=== PATIENT | female | born 1990 | race Hispanic/Latino ===

== ENCOUNTER 2019-10-13 12:44 | Emergency (ER) | payer OTHER, SELFPAY ==
[2019-10-13] MEDS ORDERED: Ondansetron PF 4 MG/2 ML Vial ONE (12:49)
[2019-10-13] MEDS ORDERED: Fentanyl 100 MCG/2 ML VIAL ONE (12:50)
[2019-10-13 13:12] LABS: #Basophils 0.1 thou/uL (0.0-0.2); #Eosinphils 0.2 thou/uL (0.0-0.7); #Lymphocytes 2.9 thou/uL (1.20-3.40); #Monocytes 0.7 thou/uL (0.11-0.59); %Basophils 0.8 % (0.0-1.0); %Eosinophils 1.7 % (0.0-10.0); %Lymphocytes 29.2 % (21.0-51.0); %Monocytes 7.1 % (0.0-10.0); %Neutrophils 61.3 % (42.0-75.0); BHCG - Serum Negative (NEGATIVE); Hemoglobin 13.2 g/dL (12.0-16.0); Mean Corpuscular HGB CONC 32.9 g/dL (32.0-36.0); Mean Corpuscular Hemoglobin 29.6 pg (27.0-31.0); Mean Platelet Volume 7.2 fL (7.4-10.4); Platelet Count 285 thou/uL (130-400); Pregs Control Background? CLEAR/WHITE (CLR/WHITE); Pregs Control Bar Appear? YES (CONTROL BAR); RBC Distribution Width 10.8 % (11.5-14.5); Red Blood Cell (RBC) Count 4.47 mill/uL (4.20-5.40); White Blood Cell (WBC) Count 9.8 thou/uL (4.8-10.8)
[2019-10-13] MEDS ORDERED: Adacel (T-DAP) 0.5 ML SYRINGE ONE (13:13)
[2019-10-13 13:18] LABS: INR-International Normal Ratio 0.9; Prothrombin Time 12.6 sec (12.0-14.7)
[2019-10-13 13:20] LABS: PTT 20.1 sec (22.9-36.1)
[2019-10-13 13:28] LABS: ALT (SGPT) 102 U/L (8-55); AST (SGOT) 152 U/L (5-34); Albumin 4.5 g/dL (3.5-5.0); Alcohol Less than 10 mg/dL (Less than 10); Alkaline Phosphatase 67 U/L (40-110); Anion Gap 17 mmol/L (10-20); BUN (Urea Nitrogen) 12 mg/dL (7.0-18.7); Bilirubin, Total 0.5 mg/dL (0.2-1.2); Calc. Creatinine Clearance 0 mL/min (70-130); Calcium 9.7 mg/dL (7.8-10.44); Carbon Dioxide 19 mmol/L (22-29); Chloride 103 mmol/L (98-107); Estimated GFR-MDRD 77; Globulin 3.1 g/dL (2.4-3.5); Glucose 110 mg/dL (70-105); Potassium 3.2 mmol/L (3.5-5.1); Protein, Total 7.6 g/dL (6.0-8.3); Sodium 136 mmol/L (136-145)
[2019-10-13] MEDS ORDERED: Promethazine HCl 25 MG/ML VIAL ONE (13:43)
[2019-10-13] MEDS ORDERED: Lidocaine 1% w/Epinephrine 1:100K 20 ML VIAL ONE (13:45)
[2019-10-13] MEDS ORDERED: Iopamidol-370 76% 500 ML 1 ML ONE (14:18)
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
[2019-10-13] MEDS ORDERED: Morphine 4 MG/ML VIAL ONE (14:45)
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
[2019-10-13] MEDS ORDERED: Bacitracin 1 PK ONE (15:11)
[2019-10-13] MEDS ORDERED: CEFAZOLIN 1 GM VIAL ONE (15:18)
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
== END 2019-10-13 17:25 | disposition home or self-care (01) ==
LOC: EDBD 12:44 → ERS 12:44
DX: S06.0X0A Concussion without loss of consciousness, initial encounter (principal); S81.012A Laceration without foreign body, left knee, initial encounter; V49.9XXA Car occupant (driver) (passenger) injured in unspecified traffic accident, initial encounter
CPT/HCPCS: 12034; 36415; 70450; 71260; 72125; 74177; 80053; 80307; 84703; 85025; 85610; 85730; 90471; 90715; 96365; 96375; G0390; J0690; J2270; J2405; J2550; J3010; Q9967

== ENCOUNTER 2019-10-13 19:56 | Emergency (ER) | payer SELFPAY | END 2019-10-13 22:15 | disposition home or self-care (01) | LOC: ERS 19:56 | DX: S06.0X9A Concussion with loss of consciousness of unspecified duration, initial encounter (principal); S01.01XA Laceration without foreign body of scalp, initial encounter; V89.2XXA Person injured in unspecified motor-vehicle accident, traffic, initial encounter | CPT/HCPCS: 12002 ==